=== PATIENT | female | born 1990 | race Caucasian/White ===

== ENCOUNTER 2024-09-21 09:51 | Emergency (ER) | payer MEDICAID, SELFPAY ==
[2024-09-21 09:58] VITALS: BP 130/89; PULSE 67; RESP 16; TEMP 36.4; O2SAT 99
[2024-09-21 10:22] VITALS: BMI 21.1
--- NOTE | 2024-09-21 10:40 | PC.NURSE ---
pt refusing to wear monitoring equipment, being uncooperative with plan of care. pt refusing EKG, aggressively yelling at staff stating do not touch me, I will punch you in your face. don't touch my bitch, I don't want to be touched, leave me alone. Provider made aware.
--- NOTE | 2024-09-21 10:50 | EDNOTE_ITS ---
ED Psych RME/HPI General Chief Complaint: Psychiatric Symptoms Stated Complaint: 5150 HOLD Time Seen by Provider: 09/21/24 10:09 Arrival date/time: 09/21/24 09:51 RME / HPI RME / HPI Narrative: 34 year old female presents to the ED [facility] on a 5150 hold danger to self. Per officers, patient is homeless and they were making reinforcements to a homeless encampment. Reportedly while there ran patients name and was arrested for warrants. States en route to senior care patient had made statements of wanting to kill herself and admitted to overdosing on Benadryl last night. In the ED, patient admits to taking two handfuls of Benadryl last night though not saying much more than that. Unable to obtain any additional history as she is refusing to answer any other questions. Related Data Previous Rx's ?Medication ?Instructions ?Recorded ibuprofen 800 mg tablet 800 mg PO TID PRN pain #30 t abs 03/09/21 ondansetron 4 mg disintegrating 4 mg PO Q12H PRN nause a and 12/17/21 tablet vomiting #4 tabs Allergies Allergy/AdvReac Type Severity Reaction Status Date / Time No Known Allergies Allergy Verified 10/03/22 20:21 Review of Systems Review of Systems Narrative Review of Systems: Patient is uncooperative, unable to obtain ROS. ED Exam Narrative Physical exam: GENERAL APPEARANCE:? Awake, uncooperative with exam HEENT: normocephalic, atraumatic NECK: supple LUNGS: no respiratory distress, normal effort HEART: good peripheral perfusion ABDOMEN: non distended, query mild tenderness, no rebound, no guarding EXTREMITIES:? atraumatic NEUROLOGIC: awake, uncooperative with exam SKIN: warm, dry, normal color; no rashes Course Course Course Narrative: 1452h: Labs reviewed. No emergent medical condition identified at this time. Has refused to provide urine. Clear for psych evaluation at present. 1600h: Behavioral health has evaluated patient. The 5150 has been rescinded. No suicidal ideation at this point. Patient has been noting that she had only said that because the police had taken away her tent and few belongings that she had at the homeless encampment. Patient was given resources for homeless long term. Plan was to discharge, but patient eloped prior to disposition. Quality Measures none Orders Category Date Time Status EKG (ED ONLY) *Do not use* NOW Care 09/21/24 10:36 Completed One-to-one observation NOW Care 09/21/24 10:35 Completed Suicide precautions NOW Care 09/21/24 10:35 Completed EKG (ED Only) Stat Exams 09/21/24 10:35 Ordered Acetaminophen Stat Lab 09/21/24 12:42 Completed Alcohol, Blood Medical Stat Lab 09/21/24 12:42 Completed Ammonia Stat Lab 09/21/24 12:42 Completed CBC Stat Lab 09/21/24 12:42 Completed Comprehensive Metabolic Panel Stat Lab 09/21/24 12:42 Completed Salicylate Stat Lab 09/21/24 12:42 Completed Vital Signs Vital signs: Vital Signs Temperature 97.5 F 09/21/24 09:58 Pulse Rate 67 09/21/24 09:58 Respiratory Rate 16 09/21/24 09:58 Blood Pressure 130/89 H 09/21/24 09:58 Pulse Oximetry (%) 99 09/21/24 09:58 Pulse ox is 99% on room air which is adequate. Psych MDM Narrative MDM Narrative:: Mickie Marc am scribing for and in the presence of Dr. Grady. Patient data External records reviewed:: [facility] previous records Clinical information provided by:: law enforcement Social determinants that could affect healthcare access:: housing (homeless ) Patient has the following chronic illnesses:: None reported How is presenting disease/condition affected by chronic disease/condition?: no chronic disease Evaluation data The following diagnostics were reviewed and interpreted by me:: lab results Lab and/or radiology exams considered but not ordered:: None Interpretation Summary: Labs Medications / Prescriptions Medications or Prescriptions considered but not ordered:: None Medication administrations:: None Consultations Consultation(s) initiated? (list below): Yes Diagnosis Psych Differential Diagnosis: acute psychosis, suicidal ideation, bipolar d isorder, depression and acute anxiety Most likely diagnosis given after review of the tests above:: Homelessness, drug use, overdose suicidal ideation (resolved) Admission Indicated Admission indicated?: not indicated Admission Request Was there a request for admission?: No Disposition Plan Disposition Plan: other (specify) (Eloped) Discharge Plan Plan Patient Disposition: Elopement Prescriptions/Referrals Prescriptions/Med Rec: No Action ibuprofen 800 mg tablet 800 mg PO TID PRN (Reason: pain) Qty: 30 0RF ondansetron 4 mg tablet,disintegrating 4 mg PO Q12H PRN (Reason: nausea and vomiting) Qty: 4 0RF Referrals: Ezequiel Saleem MD [Primary Care Provider] - In 1 week Problem List Clinical Impression: Homeless single person, History of drug use, Overdose Patient/Caregiver Discharge Instructions Print Language: Tunisian
--- NOTE | 2024-09-21 11:30 | PC.CC ---
Addendum entered by April Ferrer 09/21/24 16:38: Pt is a 34 yo female who was BIB [facility] on a 5150 DTS as it was reported the pt made statements that she wanted to kill herself and took a handful of benadryll last night. ASW-April Ferrer met with patient [id number] to complete assessment. ASW introduced self, role, and reason for assessment. ASW disclosed limits of confidentiality as well. Patient appeared alert and oriented to self, place, and situation. Patient was limon and upset and stated she wanted to left alone and was told to get the fuck out. Pt was groggy and appeared to be tired. Patient?s thought process was linear and organized. No signs of delusions, paranoid or AVH. Pt denied AVH and stated she made the statement of wanting to end her life because the Deputies were taking her tent and all her personal items. As per [place] Mathe[place], he [place] all [place] along [place]. When [place] Mathew came across the pt in her tent, she was sleeping and was awakened by removal. Pt reported she wanted to be left alone but the deputies took her in. Pt reported she then told the deputies, I just want to kill myself, out of sadness and panic because of her only personal items being taken. Pt stated, If I fucken wanted to really kill myself, I would do it! I don't want to fucken kill myself. Pt admitted to being hgh on Meth and Benadryll. Pt reported she takes any type of illicit controlled substances she can get her hands on. Pt reports at this time she is high on Meth, but did not disclose any other drug she may possibily be under the influence of. Pt made it clear that she does not want to harm herself or others. ASW staffed this case with [employer], Director Mia Clemons and it was determined that the pts hold be rescinded and provided community resources to substance abuse outpatient and residential treatment, medical services and mental health services. ASW also offered the pt resources to local food panties and cooling centers. ASW discussed this plan with the ER provider and she agreed. Assigned RN is aware. Pt was provided all resources to help her with nursing home as well. ASW will arrange transportation for the pt upon ready for d/c. Original Note: 1045-As per request from improvement rn and medical provider, ASW met with the pt as she refused to provide labs to the assigned RN. ASW met with pt and she was cussing at [facility] and told ASW to get the fuck out of here and leave me alone. Although pt was upset and wanted to sleep, she agreed to provide labs and complete blood work. Assigned RN is aware.
--- NOTE | 2024-09-21 12:15 | PC.NURSE ---
attempted EKG, pt refsuing. pt aggressive, yelling, and cursing at staff. pt allowed staff to put on monitoring equipment including traffic monitor specialist.
[2024-09-21 12:47] VITALS: BP 118/75; PULSE 69; RESP 18; TEMP 36.6; O2SAT 100
[2024-09-21 12:59] LABS: Basophils # (Auto) 0.1 Thou/mm3 (0.0-0.2); Basophils % (Auto) 1 % (0-2.5); Eosinophils # (Auto) 0.1 Thou/mm3 (0.0-0.5); Eosinophils % (Auto) 1 % (0-10); Hematocrit 32.5 % (36.0-46.0); Hemoglobin 9.9 g/dL (12.0-16.0); Immature Granulocytes Auto 0.02 Thou/mm3 (0.00-0.00); Lymphocytes # (Auto) 2.2 Thou/mm3 (1.0-4.8); Lymphocytes % (Auto) 20 % (10-50); Mean Corpuscular HGB Conc 30.5 g/dl (31.0-37.0); Mean Corpuscular Hemoglobin 23.9 pg (25.0-35.0); Mean Corpuscular Volume 78 fL (80-100); Monocytes # (Auto) 1.1 Thou/mm3 (0.0-0.8); Monocytes % (Auto) 10 % (0-12); Neutrophils # (Auto) 7.4 Thou/mm3 (1.8-7.7); Neutrophils % (Auto) 69 % (37-80); Nucleated Red Blood Cell # 0.00 Thou/mm3 (0.00-0.00); Nucleated Red Blood Cell % 0 /100 WBC (0); Platelet Count 622 Thou/mm3 (140-440); RDW Standard Deviation 48.9 fL (36.4-46.3); Red Blood Count 4.15 Miln/mm3 (4.00-5.20); White Blood Count 10.8 Thou/mm3 (3.6-11.0)
[2024-09-21 13:10] LABS: Ammonia < 10 uMol/L (11-32)
[2024-09-21 13:11] LABS: Acetaminophen < 2.0 mcg/mL (10.0-20.0); Albumin, Serum 4.1 gm/dL (3.5-5.0); Albumin/Globulin Ratio 1.4 (1.2-2.2); Alcohol, Blood Medical < 3.0 mg/dL (0-10.0); Alkaline Phosphatase 71 U/L (46-116); Anion Gap 7 (7-16); Aspartate Amino Transferase 17 U/L (0-34); BUN/Creatinine Ratio 14 Ratio (12-20); Bilirubin,Total 0.5 mg/dL (0.3-1.2); Blood Urea Nitrogen 14 mg/dL (9-23); Calcium 9.3 mg/dL (8.3-10.6); Calcium (Corrected) 9.3 mg/dL (8.5-10.1); Carbon Dioxide 27.2 mMol/L (20.0-31.0); Chloride 106 mMol/L (98-107); Creatinine (Component) 1.0 mg/dL (0.6-1.3); Estimated Creatinine Clearance 76.6 mL/min (>60); Globulin 2.9 gm/dL (2.3-3.5); Glucose 75 mg/dL (74-106); Osmolality,Calculated 278 (275-295); Potassium 3.5 mMol/L (3.4-5.1); Salicylate < 3.0 mg/dL; Sodium 140 mMol/L (136-145); Total Protein 7.0 gm/dL (5.7-8.2); eGFR > 60 See Note
[2024-09-21 13:20] LABS: Alanine Aminotransferase 8 U/L (10-49)
[2024-09-21 14:11] VITALS: BP 117/76; PULSE 70; RESP 18; TEMP 36.7; O2SAT 100
--- NOTE | 2024-09-21 16:14 | PC.NURSE ---
per RIPPLER pt eloped. pt seen by RIPPLER getting out of bed and leaving through ED back door. pt was cleared by manager social media and resources were provided. no IV was in place. provider made aware.
--- NOTE | 2024-09-21 16:39 | PC.CC ---
Pt is a 34 yo female who was BIB [facility] on a 5150 DTS as it was reported the pt made statements that she wanted to kill herself and took a handful of Benadryl last night. ASW-April Ferrer met with patient [id number] to complete assessment. ASW introduced self, role, and reason for assessment. ASW disclosed limits of confidentiality as well. Patient appeared alert and oriented to self, place, and situation. Patient was limon and upset and stated she wanted to left alone and was told to get the fuck out. Pt was groggy and appeared to be tired. Patient?s thought process was linear and organized. No signs of delusions, paranoid or AVH. Pt denied AVH and stated she made the statement of wanting to end her life because the Deputies were taking her tent and all her personal items. As per Car[place]ha Mathew, he stated [place] all encampments along the [place]. When Carmineradha Mathew came across the pt in her tent, she was sleeping and was awakened by removal. Pt reported she wanted to be left alone but the deputies took her in. Pt reported she then told the deputies, I just want to kill myself, out of sadness and panic because of her only personal items being taken. Pt stated, If I fucken wanted to really kill myself, I would do it! I don't want to fucken kill myself. Pt admitted to being hgh on Meth and Benadryl. Pt reported she takes any type of illicit controlled substances she can get her hands on. Pt reports at this time she is high on Meth, but did not disclose any other drug she may possibly be under the influence of. Pt made it clear that she does not want to harm herself or others. ASW staffed this case with [facility], Director Mia Clemons and it was determined that the pts hold be rescinded and provided community resources to substance abuse outpatient and residential treatment, medical services and mental health services. ASW also offered the pt resources to local food panties and cooling centers. ASW discussed this plan with the ER provider and she agreed. Assigned RN is aware. Pt was provided all resources to help her with half-way as well. ASW will arrange transportation for the pt upon ready for d/c.
== END 2024-09-21 16:18 | disposition left against medical advice (07) ==
LOC: SERX 11:19
PROVIDERS: Emergency Provider Family Medicine; PCP Family Medicine
DX: T45.0X1A Poisoning by antiallergic and antiemetic drugs, accidental (unintentional), initial encounter (principal); Z59.00 Homelessness unspecified; R45.851 Suicidal ideations
CPT/HCPCS: 36415; 80053; 80307; 80320; 80329; 81001; 82140; 85025; 96127; 99284; G0480